=== PATIENT | female | born 1975 | race Caucasian/White ===

== ENCOUNTER 2018-04-14 22:25 | Emergency (ER) | payer SELFPAY ==
[~2018-04-14] VITALS: Ht 154.9 cm; Wt 62.4 kg
[2018-04-14 22:36] VITALS: Ht 154.9 cm; Wt 62.4 kg
[2018-04-15] MEDS ORDERED: CYCL10TA7 PO (02:22)
[2018-04-15] MEDS ORDERED: ACET500C5 PO (02:22)
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
[2018-04-15] MEDS ORDERED: ACETAMINOPHEN 325 MG TAB PO ONE (02:30)
[2018-04-15 02:32] VITALS: BP 119/61; PULSE 56; RESP 18
== END 2018-04-15 02:38 | disposition home or self-care (01) ==
LOC: FTE 22:25
DX: M54.2 Cervicalgia (principal); M54.9 Dorsalgia, unspecified
CPT/HCPCS: 99282